=== PATIENT | female | born 1960 | race Two or more races ===

== ENCOUNTER → 2016-07-11 16:45 | Outpatient (CLI) | payer MEDICAID | END | disposition home or self-care (01) | LOC: D.MAMMO 08:30 | DX: Z12.31 Encounter for screening mammogram for malignant neoplasm of breast (principal) ==

== ENCOUNTER → 2016-08-18 17:07 | Outpatient (CLI) | payer MEDICAID | END | disposition home or self-care (01) | LOC: D.MAMMO 08:30 | DX: N63 Unspecified lump in breast (principal) ==

== ENCOUNTER 2018-01-01 08:00 | Outpatient (CLI) | payer MEDICAID | END 2018-01-01 09:00 | disposition home or self-care (01) | LOC: D.MAMMO 08:00 | DX: Z12.31 Encounter for screening mammogram for malignant neoplasm of breast (principal) ==